=== PATIENT | female | born 1985 | race Caucasian/White ===

== ENCOUNTER → 2016-09-20 | Day surgery (SDC) | payer OTHER ==
[~2016-09-20] VITALS: Ht 170.2 cm; Wt 100.0 kg
== END | disposition home or self-care (01) ==
LOC: FAS 07:22
DX: N87.1 Moderate cervical dysplasia (principal); M19.90 Unspecified osteoarthritis, unspecified site; J30.9 Allergic rhinitis, unspecified; E66.9 Obesity, unspecified; Z68.34 Body mass index [BMI] 34.0-34.9, adult; Z88.1 Allergy status to other antibiotic agents; Z87.891 Personal history of nicotine dependence
CPT/HCPCS: 84703; 88307; J1885; J2405; J2704; J3010